=== PATIENT | female | born 1995 | race African-American/Black ===

== ENCOUNTER 2018-07-30 19:00 | Emergency (ER) | payer OTHER ==
[~2018-07-30] VITALS: Ht 170.2 cm; Wt 144.1 kg
[2018-07-30] MEDS ORDERED: SIMV-259 PO (19:19)
[2018-07-30] MEDS ORDERED: GABA-529 PO ×2 (19:19→21:07)
[2018-07-30] MEDS ORDERED: PRAZ1 PO (19:19)
[2018-07-30] MEDS ORDERED: AMLO2.5T4 PO (19:19)
[2018-07-30] MEDS ORDERED: GLIP5 PO (19:19)
[2018-07-30] MEDS ORDERED: QUET25TA PO (19:19)
[2018-07-30] MEDS ORDERED: METF-960 PO ×2 (19:19→21:07)
[2018-07-30] MEDS ORDERED: INSULIN REGULAR, HUMAN 100 UNITS/ML IVP ONE (19:30)
[2018-07-30] MEDS ORDERED: SODIUM CHLORIDE 0.9% 1,000 ML IV ONE (19:30)
[2018-07-30] MEDS ORDERED: ASPIRIN 81 MG CHEWABLE TABLET PO ONE (19:30)
[2018-07-30 19:58] LABS: EOSINOPHILS % (AUTO) 0.9 % (1.0-6.0); HEMATOCRIT 43.2 % (36-46); HEMOGLOBIN 14.6 g/dL (12.0-16.0); LYMPHOCYTES # (AUTO) 4.6 K/uL (1.0-4.8); LYMPHOCYTES % (AUTO) 28.8 % (22.0-44.0); MEAN CORPUSCULAR HEMOGLOBIN 28.3 pg (26.0-34.0); MEAN CORPUSCULAR HGB CONC 33.8 G/dL (31.0-37.0); MEAN CORPUSCULAR VOLUME 84 fL (80-100); MONOCYTES # (AUTO) 1.1 K/uL (0.1-1.0); MONOCYTES % (AUTO) 6.8 % (2.0-9.0); NEUTROPHILS # (AUTO) 9.9 K/uL (1.8-7.7); NEUTROPHILS % (AUTO) 62.5 % (40.0-70.0); PLATELET COUNT (AUTO) 376 K/uL (150-450); RED BLOOD CELL COUNT(AUTO) 5.15 MIL/uL (4.00-5.20); RED CELL DISTRIBUTION WIDTH 12.6 % (11.5-14.5)
[2018-07-30 20:04] LABS: ANION GAP 15 mmol/L (8-16); CALCIUM, TOTAL 8.6 mg/dL (8.8-10.5); CARBON DIOXIDE 21 mmol/L (22-29); CHLORIDE 100 mmol/L (98-107); CREATININE 0.56 mg/dL (0.60-1.30); GLOMERULAR FILTR. RATE CALC > 60 mL/min (>60); GLUCOSE,RANDOM 321 mg/dL (70-110); POTASSIUM 3.4 mmol/L (3.5-5.1); SODIUM SERUM 136 mmol/L (136-145); UREA NITROGEN, BLOOD 5 mg/dL (7-18)
[2018-07-30 20:28] LABS: ALANINE AMINOTRANSFERASE 104 U/L (12-78); ALBUMIN 3.4 g/dL (3.4-5.0); ALKALINE PHOSPHATASE 93 U/L (46-116); ASPARTATE AMINOTRANSFERASE 56 U/L (15-37); BILIRUBIN,TOTAL 0.5 mg/dL (0.1-1.0); CREATINE KINASE, TOTAL ONLY 152 U/L (26-192); HCG,QUANTITATIVE < 1 mIU/mL (0-6); TOTAL PROTEIN, SERUM 7.1 g/dL (6.4-8.2)
[2018-07-30 20:32] LABS: B-TYPE NATRIURETIC PEPTIDE < 5 pg/mL (0-100)
[2018-07-30] MEDS ORDERED: AMLO-512 PO (21:07)
[2018-07-30] MEDS ORDERED: QUET200T PO (21:07)
[2018-07-30 21:23] LABS: GLUCOSE,POINT OF CARE 337 MG/DL (70-110)
[2018-07-30 21:32] VITALS: BP 126/70
[2018-07-30 21:40] LABS: GLUCOSE,POINT OF CARE 229 MG/DL (70-110)
== END 2018-07-30 22:10 | disposition home or self-care (01) ==
LOC: EMS 19:02
DX: E11.65 Type 2 diabetes mellitus with hyperglycemia (principal); F41.9 Anxiety disorder, unspecified; F15.10 Other stimulant abuse, uncomplicated; E66.9 Obesity, unspecified; F17.210 Nicotine dependence, cigarettes, uncomplicated; Z68.42 Body mass index [BMI] 45.0-49.9, adult; Z79.84 Long term (current) use of oral hypoglycemic drugs
CPT/HCPCS: 71045; 80053; 82550; 82962; 83880; 84484; 84702; 85025; 93005; 96361; 96374; 99285; J1815; J7030